=== PATIENT | male | born 1990 | race Two or more races ===

== ENCOUNTER 2018-07-09 18:13 | Emergency (ER) | payer SELFPAY ==
[~2018-07-09] VITALS: Ht 167.6 cm; Wt 79.4 kg
[2018-07-09 18:21] VITALS: BP 140/79
[2018-07-09 18:59] LABS: INFLUENZA A PATIENT NEGATIVE (NEGATIVE); INFLUENZA B PATIENT NEGATIVE (NEGATIVE)
[2018-07-09] MEDS ORDERED: LORA10TA68 PO (19:06)
[2018-07-09] MEDS ORDERED: AMOX500C PO (19:06)
[2018-07-09] MEDS ORDERED: GUAI200T3 PO (19:06)
--- NOTE | 2018-07-09 19:06 | PHYS DOC ---
Past Medical History Past Medical History: No Pertinent History Past Surgical History: No Surgical History Alcohol Use: Occasionally Drug Use: None Adult General Chief Complaint Chief Complaint: FLU SYMPTOM [facility] HPI Patient is a 27 year old speaking male who reports cough, congestion, eye pain, ear pain and body aches for a month. We spoke with pt and his family via [employer] phone. Review of Systems Review of Systems Constitutional: Denies fever or chills [] Eyes: Denies change in visual acuity, redness, or eye pain [] HENT: Reports nasal drainage, sore throat, sinus pressure Respiratory: Reports cough Cardiovascular: No additional information not addressed in HPI [] GI: Denies abdominal pain, nausea, vomiting, bloody stools or diarrhea [] : Denies dysuria or hematuria [] Musculoskeletal: Denies back pain or joint pain. Reports body aches. Integument: Denies rash or skin lesions [] Neurologic: Denies headache, focal weakness or sensory changes [] Endocrine: Denies polyuria or polydipsia [] All other systems were reviewed and found to be within normal limits, except as documented in this note. Allergies Allergies Allergies Coded Allergies Type Severity Reaction Last Updated Verified No Known Drug Allergies 07/09/18 No Physical Exam Physical Exam Constitutional: Well developed, well nourished, no acute distress, non-toxic appearance. [] HENT: Normocephalic, atraumatic. Oropharynx with mild erythema and post nasal drip. Sinus pressure B. Eyes: PERRLA, EOMI, conjunctiva normal, no discharge. [] Neck: Normal range of motion, no tenderness, supple, no stridor. [] Cardiovascular:Heart rate regular rhythm, no murmur [] Lungs & Thorax: Bilateral breath sounds clear to auscultation [] Abdomen: Bowel sounds normal, soft, no tenderness, no masses, no pulsatile masses. [] Skin: Warm, dry, no erythema, no rash. [] Back: No tenderness, no CVA tenderness. [] Extremities: No tenderness, no cyanosis, no clubbing, ROM intact, no edema. [] Neurologic: Alert and oriented X 3, normal motor function, normal sensory function, no focal deficits noted. [] Psychologic: Affect normal, judgement normal, mood normal. [] Current Patient Data Vital Signs Vital Signs Date Time Temp Pulse Resp B/P (MAP) Pulse Ox O2 Delivery O2 Flow Rate FiO2 07/09/18 18:21 98.2 56 20 140/79 (99) 97 Room Air 98.2 Lab Values Laboratory Tests Test 07/09/18 18:33 Influenza Type A Antigen Negative (NEGATIVE) Influenza Type B Antigen Negative (NEGATIVE) EKG EKG [] Radiology/Procedures Radiology/Procedures [] Course & Med Decision Making Course & Med Decision Making Pertinent Labs and Imaging studies reviewed. (See chart for details) FLU swab neg. Pt with symptoms consistent with sinusitis and upper respiratory infection. Pt to push fluids and rest. F/u with PCP. Dragon Disclaimer Dragon Disclaimer This electronic medical record was generated, in whole or in part, using a voice recognition dictation system. Departure Departure Impression: Primary Impression: Otitis media Additional Impression: Sinusitis Disposition: 01 HOME, SELF-CARE Condition: STABLE Referrals: NO PCP (PCP) Patient Instructions: Otitis Media, Adult, Sinusitis, [id number] Scripts Loratadine (CLARITIN) 10 Mg Tablet 1 TAB PO DAILY, #30 TAB 5 Refills Prov: LISSETTE MCKEON 07/09/18 Guaifenesin (GUAIFENESIN) 200 Mg Tablet 200 MG PO Q8HRS PRN for CONGESTION, #15 TAB Prov: LISSETTE MCKEON 07/09/18 Amoxicillin (AMOXICILLIN) 500 Mg Capsule 1 CAP PO TID, #30 CAP Prov: LISSETTE MCKEON 07/09/18 Problem Qualifiers LISSETTE MCKEON Jul 09, 2018 19:06
== END 2018-07-09 19:20 | disposition home or self-care (01) ==
LOC: ER 18:13
DX: H66.90 Otitis media, unspecified, unspecified ear (principal); R09.82 Postnasal drip; J32.9 Chronic sinusitis, unspecified; R05 Cough; M79.18 Myalgia, other site; H57.10 Ocular pain, unspecified eye
CPT/HCPCS: 87804; 99284